=== PATIENT | male | born 1965 | race African-American/Black ===

== ENCOUNTER 2023-09-02 06:09 | Observation (INO) ==
[~2023-09-02 06:09] MED LIST: NS 0.45% 1000 ml BAG 1,000 ML IV SCH; Naloxone 0.4 mg VIAL 0.4 mg/ml 1 ml VIAL IV PRN
[2023-09-02] MEDS ORDERED: Clindamycin 900 MG/50 **NS BAG 900 MG/50 ML BAG ONE (06:45)
[2023-09-02] MEDS ORDERED: Tranexamic Acid 1 GM/100ML BAG 2,000 MG/200 ML BAG IV ONE (06:45)
[2023-09-02] MEDS ORDERED: Bupivacaine 0.25% SDV 30 ML ONE ×2 (07:01→07:39)
[2023-09-02] MEDS: Lactated Ringers 1000 ml BAG 1,000 ML IV SCH ×2 (07:09→14:10)
[2023-09-02] MEDS ORDERED: Midazolam 2 mg/2 ml VIAL 1 mg/ml 2 ml VIAL (2 mg) ONE (07:15)
[2023-09-02] MEDS ORDERED: Lidocaine 2% PF 5 ML VIAL ONE (07:16)
[2023-09-02] MEDS ORDERED: Phenylephrine IV 10 MG/ML 1 ml VIAL ONE (07:16)
[2023-09-02] MEDS ORDERED: Propofol 10 MG/ML 20 ML BTL ONE ×2 (07:23→08:17)
[2023-09-02] MEDS ORDERED: fentaNYL 250 mcg/5 ml 50 MCG/ML 5 ml VIAL (250 MCG) ONE ×2 (07:24→08:50)
[2023-09-02] MEDS ORDERED: KETAMINE HCL 10 MG/ML 20 ml VIAL (200 MG) ONE (07:25)
[2023-09-02 07:32] LABS: Rapid COVID-19 Molecular Undetected (Undetected)
[2023-09-02] MEDS ORDERED: Ondansetron 4 mg VIAL 2 MG/ML 2 ml VIAL ONE ×2 (08:04→13:28)
[2023-09-02] MEDS ORDERED: Dexamethasone IV 4 MG/ML VIAL 1 ml VIAL ONE (08:04)
[2023-09-02] MEDS ORDERED: HYDROmorphone 0.5 MG/0.5 ML SYRINGE ONE ×2 (08:28→08:49)
[2023-09-02] MEDS ORDERED: Lactulose 30 ml UDC PO PRN (10:48)
[2023-09-02] MEDS ORDERED: Ondansetron ODT 4 mg TAB 4 MG TAB PO PRN (10:48)
[2023-09-02] MEDS ORDERED: Magnesium Hydroxide LIQ 30 ML UDC PO PRN (10:48)
[2023-09-02] MEDS ORDERED: Ondansetron 4 mg VIAL 2 MG/ML 2 ml VIAL IV PRN (10:48)
[2023-09-02] MEDS: hydrALAZINE 20 mg/ml 1 ML Vial IV IV SLOW PU ONE ×2 (10:50→12:30)
[2023-09-02] MEDS ORDERED: hydrALAZINE 20 mg/ml 1 ML Vial IV ONE ×2 (10:51→12:21)
[2023-09-02] MEDS ORDERED: Metoprolol Tartrate 5 mg VIAL 5 ml VIAL (1 mg/ml) ONE (11:00)
[2023-09-02] MEDS: Metoprolol Tartrate 5 mg VIAL 5 ml VIAL (1 mg/ml) IV PRN (11:02)
[2023-09-02] MEDS: fentaNYL 100 mcg/2 ml 50 MCG/ML VIAL IV PRN (11:18)
[2023-09-02] MEDS ORDERED: fentaNYL 100 mcg/2 ml 50 MCG/ML VIAL ONE (11:18)
[2023-09-02] MEDS ORDERED: HYDROmorphone 1 MG/1 ML SYRINGE ONE (11:30)
[2023-09-02] MEDS: HYDROmorphone 0.5 MG/0.5 ML SYRINGE IV PRN (11:33)
[2023-09-02] MEDS: Ondansetron 4 mg VIAL 2 MG/ML 2 ml VIAL IV PRN (13:30)
[2023-09-02] MEDS: Acetaminophen IV 1 GM/100ML 1,000 MG/100 ML BAG IV ONE (14:04)
[2023-09-02] MEDS: Buffered Lidocaine 1% SYRIN 1 ml INTRADERM ONE (14:05)
[2023-09-02] MEDS: BUPIVACAINE **LIPOSOME/PF 13.3 MG/ML (266MG/ 20ML) VIAL (RESTRICTED) INFIL ONE (14:05)
[2023-09-02] MEDS: Morphine 2 MG/ML SYRINGE IV PRN (14:57)
[2023-09-02] MEDS: Clindamycin 600 MG/D5W BAG 600 MG/50 ML BAG IV SCH (17:26)
[2023-09-02] MEDS: Mometasone/Formoter 200/5 MDI INH SCH (20:05)
[2023-09-02] MEDS: Albuterol HFA INHALER 8 gm MDI INH SCH (20:05)
[2023-09-02] MEDS: DULoxetine DR 60 mg CAP PO SCH (20:24)
[2023-09-02] MEDS: Magnesium Hydroxide LIQ 30 ML UDC PO SCH (22:28)
[2023-09-03 05:22] LABS: Hematocrit 34.7 % (38-53); Hemoglobin 11.6 g/dL (13.2-16.3); Mean Platelet Volume 8.6 fL (7.5-11.2); Platelet Count 169 10^3/uL (150-450)
[2023-09-03 05:50] LABS: Calcium 8.3 mg/dL (8.6-10.3); Creatinine, Serum 1.22 mg/dL (0.67-1.17); eGFR CKD-EPI 69.6 (>60)
[2023-09-03] MEDS: Cholecalciferol (VIT D3) 1,000 unit TAB PO SCH (08:11)
[2023-09-03] MEDS: Vitamin THERAPEUTIC TAB PO SCH (08:11)
[2023-09-03] MEDS: Morphine ER 15 mg TAB ** extended release PO SCH (08:59)
[2023-09-03 18:17] VITALS: BP 151/93
== END 2023-09-03 19:15 ==
LOC: OR 06:09 → SSU 06:09
PROVIDERS: ADMIT Orthopaedic Surgery Sports Medicine; ATTEND Orthopaedic Surgery Sports Medicine

== ENCOUNTER 2023-10-11 12:46 | Inpatient (IN) ==
[2023-10-11] MEDS ORDERED: Vancomycin per Pharmacy 1 EA NOTE FOLLOW UP SCH (21:00)
[2023-10-11 21:34] LABS: ABS Eosinophils 0.3 10^3/uL (0.0-0.5); ABS Lymphocytes 3.2 10^3/uL (1.0-4.8); ABS Monocytes 0.7 10^3/uL (0.0-1.1); ABS Nucleated RBC 0.01 10^3/ul; Eosinophil % 4.3 %; Hematocrit 29.7 % (38-53); Hemoglobin 9.9 g/dL (13.2-16.3); Lymphocyte % 44.6 %; Mean Corpuscular Hemoglobin 27.8 pg (27-33); Mean Corpuscular Hgb Conc 33.4 g/dL (31-36); Mean Corpuscular Volume 83.2 fL (80-97); Mean Platelet Volume 7.5 fL (7.5-11.2); Nucleated Red Blood Cells % 0.2 %/100WBC (0.0-0.8); Platelet Count 464 10^3/uL (150-450); Red Blood Count 3.57 10^6/uL (4.06-5.63); Red Cell Distribution Width 16.6 % (12-17); White Blood Count 7.2 10^3/uL (3.6-10.2)
[2023-10-11 21:55] LABS: INR 1.46 (0.83-1.13)
[2023-10-11] MEDS: DULoxetine DR 60 mg CAP PO SCH (22:03)
[2023-10-11 22:07] LABS: C Reactive Protein 44.31 mg/L (<8.01); Calcium 8.7 mg/dL (8.6-10.3); Creatinine, Serum 1.12 mg/dL (0.67-1.17); eGFR CKD-EPI 77.1 (>60)
[2023-10-11] MEDS: Morphine 2 MG/ML SYRINGE IV PRN (22:10)
[2023-10-11] MEDS: Lactated Ringers 1000 ml BAG 1,000 ML IV SCH (22:14)
[2023-10-11] MEDS: Vancomycin 1,000 MG in NS 0.9% 250 ml 250 ML IVPB ONE (22:16)
[2023-10-11] MEDS: Albuterol HFA INHALER 8 gm MDI INH SCH (22:20)
[2023-10-11] MEDS: Mometasone/Formoter 200/5 MDI INH SCH (22:22)
[2023-10-11] MEDS: Ondansetron 4 mg VIAL 2 MG/ML 2 ml VIAL IV PRN (22:23)
[2023-10-11 23:03] LABS: Erythrocyte Sed Rate 98 mm/Hr (0-19)
[2023-10-12] MEDS: Cefepime 2 GM in Dextrose 2 GM/50 ML BAG IV SCH (00:07)
[2023-10-12] MEDS ORDERED: Propofol 10 MG/ML 20 ML BTL ONE ×3 (07:16→09:56)
[2023-10-12] MEDS ORDERED: Midazolam 2 mg/2 ml VIAL 1 mg/ml 2 ml VIAL (2 mg) ONE (07:16)
[2023-10-12] MEDS ORDERED: Lidocaine 2% PF 5 ML VIAL ONE (07:16)
[2023-10-12] MEDS ORDERED: fentaNYL 100 mcg/2 ml 50 MCG/ML VIAL ONE ×4 (07:16→10:49)
[2023-10-12] MEDS ORDERED: Dexamethasone IV 4 MG/ML VIAL 1 ml VIAL ONE (08:40)
[2023-10-12] MEDS ORDERED: Ondansetron 4 mg VIAL 2 MG/ML 2 ml VIAL ONE (08:40)
[2023-10-12] MEDS ORDERED: KETAMINE HCL 10 MG/ML 20 ml VIAL (200 MG) ONE (08:41)
[2023-10-12] MEDS ORDERED: Acetaminophen IV 1 GM/100ML 1,000 MG/100 ML BAG IV ONE (08:44)
[2023-10-12] MEDS ORDERED: HYDROmorphone 0.5 MG/0.5 ML SYRINGE ONE (09:06)
[2023-10-12] MEDS: Vancomycin 1,250 MG in NS 0.9% 250 ml 250 ML IVPB SCH (10:00)
[2023-10-12] MEDS ORDERED: Naloxone 0.4 mg VIAL 0.4 mg/ml 1 ml VIAL IV PRN (10:45)
[2023-10-12] MEDS ORDERED: Ondansetron 4 mg VIAL 2 MG/ML 2 ml VIAL IV PRN (10:45)
[2023-10-12] MEDS ORDERED: Metoclopramide 5 MG/ML VIAL (10 mg) IV PRN (10:45)
[2023-10-12] MEDS: Acetaminophen IV 1 GM/100ML 1,000 MG/100 ML BAG IV ONE (10:45)
[2023-10-12] MEDS: fentaNYL 100 mcg/2 ml 50 MCG/ML VIAL IV PRN (10:49)
[2023-10-12] MEDS: Lactated Ringers 1000 ml BAG 1,000 ML IV SCH (11:00)
[2023-10-12] MEDS ORDERED: NS 0.45% 1000 ml BAG 1,000 ML IV SCH (11:00)
[2023-10-12] MEDS ORDERED: Scopolamine 1 mg/72hr PATCH ONE (11:24)
[2023-10-12] MEDS: Scopolamine 1 mg/72hr PATCH TRANSDERM ONE (11:25)
[2023-10-12] MEDS ORDERED: Labetalol IV 5 MG/ML 20 ml VIAL ONE (12:43)
[2023-10-12] MEDS: Labetalol IV 5 MG/ML 20 ml VIAL IV PUSH ONE (12:49)
[2023-10-12] MEDS: Cholecalciferol (VIT D3) 1,000 unit TAB PO SCH (16:19)
[2023-10-12] MEDS: Buffered Lidocaine 1% SYRIN 1 ml INTRADERM ONE (16:23)
[2023-10-13] MEDS: Vancomycin 1,250 MG in NS 0.9% 250 ml 250 ML IVPB SCH (05:13)
[2023-10-13 06:28] LABS: Creatinine, Serum 1.03 mg/dL (0.67-1.17); eGFR CKD-EPI 85.3 (>60)
[2023-10-13] MEDS: Enoxaparin 40 MG/0.4 ML SYR SUBCUT SCH (08:51)
[2023-10-13] MEDS: Scopolamine 1 mg/72hr PATCH TRANSDERM SCH (09:20)
[2023-10-13] MEDS ORDERED: Dextrose 50% Syringe 50 ml 25 GM/50 ML SYRINGE IV PUSH PRN (12:21)
[2023-10-13] MEDS: Enoxaparin 100 MG/ML SYR SUBCUT SCH (20:41)
[2023-10-13] MEDS: HYDROmorphone 1 MG/1 ML SYRINGE IV SLOW PU PRN (20:41)
[2023-10-14 05:41] LABS: Hematocrit 27.5 % (38-53); Hemoglobin 9.1 g/dL (13.2-16.3); Mean Corpuscular Hemoglobin 27.6 pg (27-33); Mean Corpuscular Volume 83.5 fL (80-97); Mean Platelet Volume 7.9 fL (7.5-11.2); Platelet Count 458 10^3/uL (150-450); Red Blood Count 3.29 10^6/uL (4.06-5.63); White Blood Count 9.6 10^3/uL (3.6-10.2)
[2023-10-14 06:02] LABS: Creatinine, Serum 0.82 mg/dL (0.67-1.17); eGFR CKD-EPI 103.1 (>60)
[2023-10-14 06:03] LABS: Vancomycin Trough 14.1 mcg/mL
[2023-10-14 06:33] LABS: ABS Basophils 0.1 10^3/uL (0.0-0.1); ABS Eosinophils 0.4 10^3/uL (0.0-0.5); ABS Lymphocytes 3.1 10^3/uL (1.0-4.8); ABS Monocytes 1.1 10^3/uL (0.0-1.1); ABS Nucleated RBC 0.03 10^3/ul; Eosinophil % 4.1 %; Lymphocyte % 31.9 %; Nucleated Red Blood Cells % 0.3 %/100WBC (0.0-0.8)
[2023-10-14 06:34] LABS: Anisocytosis 1+
[2023-10-14] MEDS: Vancomycin Trough Check NOTE FOLLOW UP ONE (09:55)
[2023-10-14] MEDS: Cyanocobalamin INJ 1,000 MCG/ML VIAL 1 ML VIAL IM SCH (16:03)
[2023-10-14] MEDS: Ampicillin ADVAN 2 GM in NS 0.9% 100 ml BAG 100 ML IVPB SCH (16:16)
[2023-10-15] MEDS ORDERED: Polyethylene Glycol 3350 17 GM PACKET PO PRN (10:44)
[2023-10-15] MEDS ORDERED: Magnesium Hydroxide LIQ 30 ML UDC PO PRN (10:44)
[2023-10-15] MEDS: Senna TAB 8.6 mg TAB PO PRN (11:15)
[2023-10-15] MEDS: Magnesium Hydroxide LIQ 30 ML UDC PO SCH (21:33)
[2023-10-16 08:04] LABS: Hematocrit 26.4 % (38-53); Hemoglobin 8.8 g/dL (13.2-16.3); Mean Corpuscular Hemoglobin 27.7 pg (27-33); Mean Corpuscular Hgb Conc 33.3 g/dL (31-36); Mean Corpuscular Volume 83.1 fL (80-97); Mean Platelet Volume 7.3 fL (7.5-11.2); Platelet Count 473 10^3/uL (150-450); Red Blood Count 3.17 10^6/uL (4.06-5.63); White Blood Count 10.9 10^3/uL (3.6-10.2)
[2023-10-16 08:44] LABS: Calcium 8.9 mg/dL (8.6-10.3); Creatinine, Serum 0.94 mg/dL (0.67-1.17); Potassium 3.9 mmol/L (3.5-5.0); eGFR CKD-EPI 95.1 (>60)
[2023-10-16 09:26] LABS: ABS Eosinophils 0.4 10^3/uL (0.0-0.5); ABS Lymphocytes 3.4 10^3/uL (1.0-4.8); ABS Monocytes 0.9 10^3/uL (0.0-1.1); ABS Neutrophils 6.3 10^3/uL (1.5-7.6); ABS Nucleated RBC 0.03 10^3/ul; Anisocytosis 1+; Eosinophil % 3.4 %; Lymphocyte % 30.8 %; Nucleated Red Blood Cells % 0.2 %/100WBC (0.0-0.8)
[2023-10-17] MEDS ORDERED: Vancomycin Trough Check NOTE FOLLOW UP ONE (05:30)
[2023-10-17 06:22] LABS: Blood Urea Nitrogen 12 mg/dL (6-24); C Reactive Protein 102.81 mg/L (<8.01); Creatinine, Serum 0.92 mg/dL (0.67-1.17); Vancomycin Trough < 2.0 mcg/mL; eGFR CKD-EPI 97.6 (>60)
[2023-10-17 06:28] LABS: Hematocrit 25.6 % (38-53); Hemoglobin 8.4 g/dL (13.2-16.3); Mean Corpuscular Hemoglobin 27.3 pg (27-33); Mean Corpuscular Hgb Conc 32.9 g/dL (31-36); Mean Corpuscular Volume 82.9 fL (80-97); Mean Platelet Volume 7.9 fL (7.5-11.2); Platelet Count 450 10^3/uL (150-450); Red Blood Count 3.09 10^6/uL (4.06-5.63); Red Cell Distribution Width 17.1 % (12-17); White Blood Count 10.5 10^3/uL (3.6-10.2)
[2023-10-17 07:41] LABS: Erythrocyte Sed Rate 116 mm/Hr (0-19)
[2023-10-17 09:13] LABS: ABS Basophils 0.1 10^3/uL (0.0-0.1); ABS Eosinophils 0.4 10^3/uL (0.0-0.5); ABS Lymphocytes 3.1 10^3/uL (1.0-4.8); ABS Monocytes 1.2 10^3/uL (0.0-1.1); ABS Neutrophils 5.7 10^3/uL (1.5-7.6); ABS Nucleated RBC 0.06 10^3/ul; Eosinophil % 3.5 %; Lymphocyte % 29.9 %; Nucleated Red Blood Cells % 0.6 %/100WBC (0.0-0.8)
[2023-10-17 09:14] LABS: Anisocytosis 1+; Polychromasia 1+
[2023-10-18] MEDS ORDERED: HYDROmorphone 0.5 MG/0.5 ML SYRINGE IV SLOW PU PRN (13:12)
[2023-10-19] MEDS: HYDROmorphone 0.5 MG/0.5 ML SYRINGE IV PRN (13:32)
[2023-10-20 06:04] LABS: ABS Basophils 0.1 10^3/uL (0.0-0.1); ABS Eosinophils 0.3 10^3/uL (0.0-0.5); ABS Lymphocytes 3.7 10^3/uL (1.0-4.8); ABS Neutrophils 6.2 10^3/uL (1.5-7.6); ABS Nucleated RBC 0.03 10^3/ul; Eosinophil % 3.1 %; Hematocrit 26.1 % (38-53); Hemoglobin 8.6 g/dL (13.2-16.3); Lymphocyte % 32.7 %; Mean Corpuscular Hemoglobin 27.7 pg (27-33); Mean Corpuscular Hgb Conc 33.1 g/dL (31-36); Mean Corpuscular Volume 83.7 fL (80-97); Mean Platelet Volume 7.6 fL (7.5-11.2); Nucleated Red Blood Cells % 0.3 %/100WBC (0.0-0.8); Platelet Count 386 10^3/uL (150-450); Red Blood Count 3.12 10^6/uL (4.06-5.63); Red Cell Distribution Width 17.7 % (12-17); White Blood Count 11.3 10^3/uL (3.6-10.2)
[2023-10-20 07:00] LABS: Calcium 8.6 mg/dL (8.6-10.3); Creatinine, Serum 0.96 mg/dL (0.67-1.17); Magnesium 1.7 mg/dL (1.9-2.7); Potassium 4.5 mmol/L (3.5-5.0); eGFR CKD-EPI 92.8 (>60)
[2023-10-20] MEDS: Magnesium Sulfate 2 gm BAG 2 GM/50 ML BAG IVPB ONE (08:59)
[2023-10-21 13:39] VITALS: BP 124/74
[2023-10-21 14:41] LABS: C Reactive Protein 94.53 mg/L (<8.01)
[2023-10-21] MEDS ORDERED: Nystatin TOP POWDER 15 GM BTL TOPICAL SCH (21:00)
== END 2023-10-21 17:10 | DRG 302 ==
LOC: SSU 18:42
PROVIDERS: ADMIT Orthopaedic Surgery; ATTEND Orthopaedic Surgery Sports Medicine